=== PATIENT | female | born 1935 | race Caucasian/White ===

== ENCOUNTER 2017-01-19 09:08 | Outpatient (CLI) | payer MEDICARE, OTHER ==
[2017-01-19 09:39] LABS: Anion Gap 14 mmol/L (10-20); BUN (Urea Nitrogen) 23 mg/dL (9.8-20.1); Calc. Creatinine Clearance 0 mL/min (70-130); Calcium 10.4 mg/dL (7.8-10.44); Carbon Dioxide 28 mmol/L (23-31); Chloride 105 mmol/L (98-107); Estimated GFR-MDRD 51
== END 2017-01-19 09:09 | disposition home or self-care (01) ==
LOC: BURLAB 09:08
PROVIDERS: ATTEND Internal Medicine Cardiovascular Disease
DX: I10 Essential (primary) hypertension (principal); R60.0 Localized edema
CPT/HCPCS: 36415; 80048

== ENCOUNTER 2019-01-24 16:38 | Inpatient (IN) | payer MEDICARE ==
[2019-01-24 17:06] LABS: Bilirubin Negative (Negative); Blood, Urine Negative (Negative); Clarity Cloudy (Clear); Glucose, Urine (Dipstick) Negative (Negative); Leukocyte Moderate (Negative); Nitrite Positive (Negative); Protein, Urine (Dipstick) Negative (Neg-Trace); Specific Gravity, Urine 1.015 (1.005-1.030); Urobilinogen 0.2 mg/dL (0.2-1.0)
[2019-01-24] MEDS ORDERED: Ondansetron ODT 4 MG TAB ONE ×2 (17:08→18:23)
[2019-01-24 17:11] LABS: Bacteria/HPF 4+ HPF (None Seen); RBC/HPF 0-3 HPF (0-3); Renal Epithelial 0-3 HPF (0-3)
[2019-01-24] MEDS ORDERED: cefTRIAXone\\ROCEPHIN 2 GM VIAL ONE (18:06)
[2019-01-24] MEDS ORDERED: Sodium Chloride 0.9% 100 ML ONE (18:06)
[2019-01-24 18:11] LABS: #Basophils 0.1 thou/uL (0.0-0.2); #Eosinphils 0.1 thou/uL (0.0-0.7); #Lymphocytes 1.5 thou/uL (1.20-3.40); #Monocytes 0.8 thou/uL (0.11-0.59); #Neutrophils 6.2 thou/uL (1.40-6.50); %Basophils 0.9 % (0.0-1.0); %Eosinophils 1.4 % (0.0-10.0); %Lymphocytes 17.2 % (21.0-51.0); %Neutrophils 71.6 % (42.0-75.0); Hemoglobin 14.3 g/dL (12.0-16.0); Mean Corpuscular HGB CONC 34.4 g/dL (32.0-36.0); Mean Corpuscular Hemoglobin 32.8 pg (27.0-31.0); Mean Corpuscular Volume 95.4 fL (78.0-98.0); Mean Platelet Volume 7.1 fL (7.4-10.4); Platelet Count 208 thou/uL (130-400); RBC Distribution Width 11.5 % (11.5-14.5); Red Blood Cell (RBC) Count 4.37 mill/uL (4.20-5.40); White Blood Cell (WBC) Count 8.6 thou/uL (4.8-10.8)
[2019-01-24] MEDS ORDERED: Ketorolac Tromethamine 30 MG/ML VIAL ONE (18:17)
[2019-01-24 18:23] LABS: ALT (SGPT) 32 U/L (8-55); AST (SGOT) 28 U/L (5-34); Albumin 4.4 g/dL (3.4-4.8); Alkaline Phosphatase 72 U/L (40-150); Anion Gap 16 mmol/L (10-20); BUN (Urea Nitrogen) 24 mg/dL (9.8-20.1); Bilirubin, Total 1.2 mg/dL (0.2-1.2); Calc. Creatinine Clearance 0 mL/min (70-130); Calcium 10.5 mg/dL (7.8-10.44); Carbon Dioxide 27 mmol/L (23-31); Chloride 101 mmol/L (98-107); Estimated GFR-MDRD 47; Globulin 2.8 g/dL (2.4-3.5); Glucose 116 mg/dL (83-110); Potassium 3.9 mmol/L (3.5-5.1); Protein, Total 7.2 g/dL (6.0-8.3); Sodium 140 mmol/L (136-145)
[2019-01-24 20:09] VITALS: BMI 24.1
[2019-01-24] MEDS ORDERED: Ondansetron ODT 4 MG TAB PO PRN (20:15)
[2019-01-24] MEDS: Simvastatin 40 MG TAB PO SCH (21:49)
[2019-01-24] MEDS ORDERED: Ketorolac Tromethamine 60 MG/2 ML VIAL IM SCH (22:15)
[2019-01-24] MEDS: Ondansetron PF 4 MG/2 ML Vial SLOW IVP PRN (22:36)
[2019-01-25 05:35] LABS: ALT (SGPT) 32 U/L (8-55); AST (SGOT) 35 U/L (5-34); Albumin 3.5 g/dL (3.4-4.8); Alkaline Phosphatase 53 U/L (40-150); Anion Gap 15 mmol/L (10-20); BUN (Urea Nitrogen) 26 mg/dL (9.8-20.1); Calc. Creatinine Clearance 27 mL/min (70-130); Calcium 9.4 mg/dL (7.8-10.44); Carbon Dioxide 22 mmol/L (23-31); Chloride 105 mmol/L (98-107); Estimated GFR-MDRD 30; Glucose 116 mg/dL (83-110); Potassium 3.9 mmol/L (3.5-5.1); Protein, Total 5.5 g/dL (6.0-8.3); Sodium 138 mmol/L (136-145)
[2019-01-25 05:48] LABS: Band 7 % (5-11); Hemoglobin 12.8 g/dL (12.0-16.0); Lymphocytes 6 % (21-51); MDiff Complete? YES; Mean Corpuscular HGB CONC 35.3 g/dL (32.0-36.0); Mean Corpuscular Hemoglobin 33.4 pg (27.0-31.0); Mean Corpuscular Volume 94.7 fL (78.0-98.0); Mean Platelet Volume 7.9 fL (7.4-10.4); Monocytes 5 % (0-10); Neutrophil 80 % (42-75); Platelet Count 168 thou/uL (130-400); Platelet Morphology Comment Appears Adequate; RBC Distribution Width 11.6 % (11.5-14.5); RBC Morphology Normal; Reactive Lymphocytes 2 % (0-10); Red Blood Cell (RBC) Count 3.86 mill/uL (4.20-5.40); White Blood Cell (WBC) Count 23.5 thou/uL (4.8-10.8)
[2019-01-25] MEDS ORDERED: Sodium Chloride 0.9% 1,000 ML IV SCH (06:00)
[2019-01-25] MEDS: Sodium Chloride 0.9% 1,000 ML IV SCH ×3 (07:25→20:54)
[2019-01-25] MEDS: Spironolactone 25 MG TAB PO SCH (09:16)
[2019-01-25] MEDS: Furosemide 20 MG TAB PO SCH (09:17)
[2019-01-25] MEDS: Aspirin 81 mg Enteric Coated Tablet PO SCH (09:17)
[2019-01-25] MEDS ORDERED: cefTRIAXone\\ROCEPHIN 1 GM in Sodium Chloride 0.9% 100 ML IVPB SCH (18:00)
[2019-01-25] MEDS: cefTRIAXone\\ROCEPHIN 1 GM in Sodium Chloride 0.9% 100 ML IVPB SCH (20:15)
[2019-01-25] MEDS: Simvastatin 40 MG TAB PO SCH (20:16)
--- NOTE | 2019-01-26 04:29 | HP ---
CHIEF COMPLAINT: Left flank pain. HISTORY OF THE PRESENT ILLNESS: Ms. Malloy is an 83-year-old female, who presented to the [facility] Emergency Department after acute onset of left flank pain yesterday morning. Per the patient, this progressed and by the evening time was so severe that she needed to be evaluated. She denies any associated dysuria, gross hematuria, fever, or chills. She denies ever having had anything like this before. She denies a history of frequent urinary tract infections. She is a patient of Dr. Villarreal's here in [place] and reports that she has been in stable routine health for the last several months. PAST MEDICAL HISTORY: 1. Congestive heart failure. 2. Hyperlipidemia. 3. Coronary artery disease, status post coronary artery bypass graft of 2 vessels. PAST SURGICAL HISTORY: 1. Appendectomy. 2. Coronary artery bypass graft surgery, 2 vessels. 3. Bilateral tubal ligation. SOCIAL HISTORY: The patient reports that she drinks approximately 1 beer a day , but denies any smoking or illicit drug use. She is for what she states is 64 years to her who is 90 and suffering from dementia. They have a daughter who is special needs and a son, Mike, who helps care for them. FAMILY HISTORY: Noncontributory to this case. ALLERGIES: LATEX AND NATURAL RUBBER. MEDICATIONS: 1. Spironolactone 25 mg p.o. daily. 2. Simvastatin 40 mg p.o. at bedtime. 3. Metoprolol-XL 25 mg p.o. daily. 4. Lasix 20 mg p.o. daily. 5. Aspirin 81 mg p.o. daily. REVIEW OF SYSTEMS: GENERAL: The patient denies chills, fever, or lethargy. Positive malaise. CARDIOVASCULAR: Denies chest pain, palpitations, orthopnea, or PND. RESPIRATORY: Denies shortness of breath or sputum production. She has had intermittent cough. Denies hemoptysis. GASTROINTESTINAL: The patient reports approximately 3 episodes of nausea with vomiting with onset of the pain yesterday. Denies diarrhea or constipation. No hematemesis. No bilious emesis. GENITOURINARY: She denies dysuria, frequency, hematuria, or urgency. MUSCULOSKELETAL: Denies muscle aches or other joint pain or swelling. SKIN: Denies rash. NEUROLOGIC: She denies any history of confusion, focal weakness, numbness, or slurring of speech. PSYCHIATRIC: She does drink approximately 1 beer per day, but denies any history of depression or anxiety. LYMPHATIC: The patient denies any swelling. PHYSICAL EXAMINATION: VITAL SIGNS: In the ED, blood pressure 179/78, pulse 78, O2 saturation 100% on room air, respirations 16, temperature 98.4, pain 5/10. At my exam, temperature 98.8 , pulse 72, respirations 16, O2 saturation 95% on room air, and blood pressure 96/ 52. GENERAL: Well-developed, well-nourished female, alert and oriented x4 , who states she is feeling much better and is in no acute distress. She reports no pain. HEENT: Normocephalic, atraumatic. Extraocular muscles intact. Pupils are equally round and reactive to light and accommodation. Nares are patent without discharge. Tongue protrudes in the midline. NECK: Supple without lymphadenopathy, thyromegaly, JVD, or bruit. HEART: Regular rate and rhythm with normal S1 and S2. No murmurs, clicks, rubs , or gallops. CHEST: There is a vertical scar over the sternum that is healed. RESPIRATORY: Clear to auscultation with good aeration bilaterally. No crackles or wheezes. No increased work of breathing. ABDOMEN: Positive bowel sounds in all 4 quadrants. Soft and nondistended. No masses, guarding, or rebound tenderness. Positive CVA tenderness on the left. EXTREMITIES: No cyanosis, clubbing, or edema. NEUROLOGIC: Cranial nerves 2 through 12 grossly intact with no focal deficits. LABORATORY STUDIES: White count on admit 8.6 with an increase to 23.5 today with 80% neutrophils, 7 bands, and 6 lymphocytes. Chemistry profile from admission with a BUN of 24, creatinine 1.11, glucose 116, and calcium 10.5, otherwise unremarkable, lactic acid 1.7. Chemistry profile today with BUN of 26, creatinine 1.61 with a glucose of 116, calcium 9.4, AST 35, and ALT 32. Urinalysis significant for positive nitrite, moderate leukocyte esterase, 11 to 20 wbc's, 4 to 6 epithelial cells, 4+ bacteria and microbiology report so far shows gram-negative rods in the urine and 2 out of 2 blood cultures positive. ASSESSMENT AND PLAN: 1. Acute pyelonephritis. The patient was placed on 1 g of Rocephin IV q.24 in the emergency room. Due to the increase in her white count and the bump in her renal function as well as her positive blood cultures, we will add another agent of Levaquin and also increase the frequency of the Rocephin to q.12 hours. We will follow up her urine and blood culture results closely. 2. Gram-negative bacteremia. Her lactic acid level was negative on her admission; however, she already has 2 out of 2 blood cultures positive. Add the additional antimicrobial coverage as per #1 and continue IV fluid resuscitation and close monitoring of vital signs. We will repeat a CBC and a BMP in the a.m. 3. Acute kidney injury. This is likely secondary to her severe infection. Again, we will monitor for improvement. 4. Hypertension. The patient was continued on her Lasix, metoprolol, and spironolactone at admit and we will hold the diuretics at this time due to her lowered blood pressure and monitor her fluid status closely. 5. History of congestive heart failure. The patient's beta elaine will be continued. We will hold the patient's diuretics for now and monitor closely. We do not have a confirmed left ventricular ejection fraction on record here. 6. Coronary artery disease. We will continue the patient's aspirin and her statin as well as her beta elaine. 7. Prophylaxis. We will add Pepcid and place SCDs. CODE STATUS: Full code status. Job ID: [id number] MTDD
[2019-01-26 05:10] LABS: Anion Gap 12 mmol/L (10-20); BUN (Urea Nitrogen) 31 mg/dL (9.8-20.1); Calc. Creatinine Clearance 24 mL/min (70-130); Calcium 8.4 mg/dL (7.8-10.44); Carbon Dioxide 21 mmol/L (23-31); Chloride 107 mmol/L (98-107); Estimated GFR-MDRD 27; Glucose 97 mg/dL (83-110); Potassium 4.4 mmol/L (3.5-5.1); Sodium 136 mmol/L (136-145)
[2019-01-26 05:58] LABS: Band 6 % (5-11); Hemoglobin 11.6 g/dL (12.0-16.0); Lymphocytes 12 % (21-51); MDiff Complete? YES; Mean Corpuscular HGB CONC 34.7 g/dL (32.0-36.0); Mean Corpuscular Hemoglobin 33.7 pg (27.0-31.0); Mean Corpuscular Volume 96.9 fL (78.0-98.0); Mean Platelet Volume 7.7 fL (7.4-10.4); Monocytes 5 % (0-10); Neutrophil 77 % (42-75); Platelet Count 119 thou/uL (130-400); Platelet Morphology Comment Appears Decreased; RBC Distribution Width 11.8 % (11.5-14.5); RBC Morphology Normal; Red Blood Cell (RBC) Count 3.44 mill/uL (4.20-5.40); White Blood Cell (WBC) Count 11.1 thou/uL (4.8-10.8)
[2019-01-26] MEDS: Sodium Chloride 0.9% 1,000 ML IV SCH (07:07)
[2019-01-26] MEDS: Ondansetron PF 4 MG/2 ML Vial SLOW IVP PRN (09:05)
[2019-01-26] MEDS: cefTRIAXone\\ROCEPHIN 1 GM in Sodium Chloride 0.9% 100 ML IVPB SCH ×2 (09:11→20:45)
[2019-01-26] MEDS: Famotidine 20 MG TAB PO SCH (10:42)
[2019-01-26] MEDS: Acetaminophen 500 MG TAB PO PRN ×2 (10:42→14:10)
[2019-01-26] MEDS: Aspirin 81 mg Enteric Coated Tablet PO SCH (10:43)
[2019-01-26] MEDS ORDERED: Docusate 100 MG CAP PO PRN (12:58)
[2019-01-26] MEDS ORDERED: HYDROcodone/Acetaminophen 10/325 mg Tablet PO PRN (18:19)
[2019-01-26] MEDS ORDERED: Tamsulosin HCl 0.4 MG CAP PO SCH (19:15)
[2019-01-26] MEDS: HYDROcodone/Acetaminophen 5/325 mg Tablet PO PRN (19:16)
[2019-01-26] MEDS: Simvastatin 40 MG TAB PO SCH (20:44)
--- NOTE | 2019-01-26 22:35 | CT ---
CT ABDOMEN AND PELVIS WITHOUT CONTRAST 01/26/[address] of the abdomen and pelvis was performed for evaluation of left flank and lower abdominal pa in in this patient with a UTI and sepsis. Axial slices were acquired, then coronal and sagittal reconstructions were done. There are some small bilateral pleural effusions in the lung bases. Other than a little dependent ate lectasis, there are no infiltrative changes in the visible portions of the lungs. Some coronary arter y calcifications are seen in the LAD. There is a 1.9 cm cyst in the dome of the liver that is probably of no consequence. The liver and spl een otherwise appear normal. Gallstones are present in the gallbladder but there does not appear to b e substantial wall thickening or inflammatory change around it. The pancreas and adrenal glands were unremarkable. The main finding on the study is left hydronephrosis and hydroureter secondary to an 6 to 7 mm distal left ureteral calculus. It is located very near the left UVJ. No residual stones are seen in either kidney. No renal masses were appreciated. The left kidney seems slightly swollen compared to the righ t. The aorta is calcified but shows no aneurysm. The bowel shows no evidence of obstruction or inflammatory change around it. No free air is noted. CT of the pelvis shows a small amount of free fluid in the cul-de-sac. No pelvic masses or gross infl ammatory changes were appreciated. IMPRESSION: 1. 6 to 7 mm distal left ureteral calculus near the UVJ causing moderate hydronephrosis and hydr oureter. 2. Small amount of free fluid in the pelvis. 3. Small bilateral pleural effusions. 4. Small hepatic cysts. 5. Gallstones. Preliminary report taken to nurses station at approximately 1855. Dr. Rojas also notified. POS: HOME
[2019-01-27] MEDS: HYDROcodone/Acetaminophen 5/325 mg Tablet PO PRN ×2 (00:41→04:57)
[2019-01-27 05:25] LABS: Anion Gap 13 mmol/L (10-20); BUN (Urea Nitrogen) 27 mg/dL (9.8-20.1); Calc. Creatinine Clearance 24 mL/min (70-130); Calcium 8.8 mg/dL (7.8-10.44); Carbon Dioxide 21 mmol/L (23-31); Chloride 108 mmol/L (98-107); Estimated GFR-MDRD 27; Glucose 101 mg/dL (83-110); Potassium 4.6 mmol/L (3.5-5.1); Sodium 137 mmol/L (136-145)
[2019-01-27 05:26] LABS: #Eosinphils 0.3 thou/uL (0.0-0.7); #Monocytes 0.8 thou/uL (0.11-0.59); %Basophils 0.5 % (0.0-1.0); %Eosinophils 2.9 % (0.0-10.0); %Lymphocytes 10.9 % (21.0-51.0); %Monocytes 9.3 % (0.0-10.0); %Neutrophils 76.4 % (42.0-75.0); Hemoglobin 11.9 g/dL (12.0-16.0); Mean Corpuscular HGB CONC 33.9 g/dL (32.0-36.0); Mean Corpuscular Hemoglobin 33.1 pg (27.0-31.0); Mean Corpuscular Volume 97.5 fL (78.0-98.0); Mean Platelet Volume 7.8 fL (7.4-10.4); Platelet Count 129 thou/uL (130-400); RBC Distribution Width 11.5 % (11.5-14.5); Red Blood Cell (RBC) Count 3.59 mill/uL (4.20-5.40); White Blood Cell (WBC) Count 9.1 thou/uL (4.8-10.8)
[2019-01-27] MEDS ORDERED: Tamsulosin HCl 0.4 MG CAP PO SCH (09:00)
[2019-01-27] MEDS: Aspirin 81 mg Enteric Coated Tablet PO SCH (09:34)
[2019-01-27] MEDS: cefTRIAXone\\ROCEPHIN 1 GM in Sodium Chloride 0.9% 100 ML IVPB SCH (09:35)
[2019-01-27] MEDS: Famotidine 20 MG TAB PO SCH (09:35)
[2019-01-27] MEDS: Spironolactone 25 MG TAB PO SCH (09:36)
[2019-01-27] MEDS: Furosemide 20 MG TAB PO SCH (09:36)
--- NOTE | 2019-01-27 10:28 | RAD ---
ABDOMEN: DATE: 01/27/2019. FINDINGS: Supine views of the abdomen were obtained to see if one can see the known distal ureteral stone. The calcifications in this patient's pelvis show up very poorly. What I feel is most likely the ston e, and there is some guesswork involved here, is in about the same location as it was on the recent C T. The more peripheral calcification seen in the left side of the pelvis closer to the acetabulum ar e not in the urinary tract. There is a moderate amount of fecal material in the colon. There is some minor gaseous distention of the colon, but no sign of obstruction. No other findings of concern were found. IMPRESSION: 1. Stone not seen definitively due to overlying gas and fecal material. What is thought to be it is in about the same position as the prior scan. 2. Mild constipation. POS: HOME
[2019-01-27 14:32] VITALS: BP 122/58; TEMP 98.4
--- NOTE | 2019-01-27 23:51 | DIS ---
DATE OF ADMISSION: 01/24/2019 DATE OF DISCHARGE: 01/27/2019 ADMISSION DIAGNOSES: 1. Acute pyelonephritis. 2. Gram-negative bacteremia. 3. Acute kidney injury. 4. Hypertension. 5. History of congestive heart failure. 6. Coronary artery disease. DISCHARGE DIAGNOSES: 1. Acute pyelonephritis due to Escherichia coli. 2. Escherichia coli sepsis. 3. Ureterolithiasis, left. 4. Acute kidney injury. 5. Hypertension. 6. History of congestive heart failure. 7. Coronary artery disease. ADMITTING PHYSICIANS: Dr. Venancio Mccormack with Dr. Susu Rojas, the attending physician, assuming care on the morning of January 25. PRIMARY CARE PHYSICIAN: Dr. Luis Villarreal. LAB/IMAGIN. Abdomen and pelvis CT, January 26, 2019, with 6 to 7 mm distal left ureteral calculus near the UVJ causing moderate hydronephrosis and hydroureter. Small amount of free fluid in the pelvis. Small bilateral pleural effusions. Small hepatic cysts. Gallstones. 2. Abdomen x-ray, January 27, shows the stone not seen definitively due to overlying gas and fecal material. What is thought to be is in about the same position as the prior scan. Mild constipation. 3. White count on admission 8.6, it climbed to 23.5 on the morning following the admission, and decreased subsequently to 11.1, and down to 9.1 in normal range on the date of transfer. The differential was neutrophilic with a left shift. The chemistry profile remarkable for a BUN of 24 and creatinine 1.11 on the date of admission, that increased to 27 and 1.8 on the date of transfer. 4. Urinalysis on the night of admission positive for nitrites, moderate leukocyte esterase, 11 to 20 wbc's, 4 to 6 epithelial cells, and 4+ bacteria. 5. Urine culture from the night of admission growing pansensitive Escherichia coli. 6. Blood cultures x2 from the night of admission growing pansensitive Escherichia coli, the same strain as the urine. HISTORY AND PHYSICAL: Please see dictated report from the date of admission. HOSPITAL COURSE: Ms. Malloy is an 84-year-old female, who was admitted with left flank pain and was found to have findings of pyelonephritis in the emergency room with abnormal urinalysis. She, at that time, did not meet sepsis criteria as her lactic acid was not elevated and she had a normal white count. However, overnight, that criteria was met with a leukocytosis and 2 out of 2 blood cultures positive for gram-negative bacteremia. She also had some associated hypotension and was hydrated and treated aggressively on the floor. Empirically , in the ER, she was started on Rocephin and Levaquin was added. She quickly improved. Her pain resolved and her white count improved as well. The patient's renal function did bump, and on January 26, she complained of some pain that was recurring to the lower abdomen on the left. CT scan of the abdomen and pelvis confirmed a 6 to 7 mm stone at the UVJ with hydronephrosis and hydroureter. The patient was stable overnight and the decision was made to transfer the patient to higher level of care this morning for Urology consultation and the probable need for instrumentation prior to her discharge. I have talked with Hospitalist who has graciously accepted the patient. PHYSICAL EXAMINATION: VITAL SIGNS: On the date of discharge, temperature 98.3. The patient has been afebrile throughout her entire admission. Pulse 68, respirations 18, 97% O2 saturation on room air, blood pressure 124/59. GENERAL: A thin female, pleasant, alert and oriented x4, and in no acute distress. HEENT: Pupils are equally round and reactive to light and accommodation, extraocular muscles are intact. Nares are patent without discharge. NECK: Supple without lymphadenopathy, thyromegaly, JVD, or bruit. HEART: Regular rate and rhythm with normal S1 and S2. No clicks, rubs, or gallops. She has a 2/6 systolic ejection murmur, best heard at the left upper sternal border without radiation. She does have a vertical mid sternotomy scar that is well approximated and healed. ABDOMEN: Soft with mild tenderness to palpation in the left upper and lower quadrant without masses, guarding, or rebound tenderness. EXTREMITIES: No cyanosis, clubbing, or edema. NEUROLOGICAL: Cranial nerves 2 through 12 are grossly intact without focal deficits. I have updated the patient as well as her son, Mike Malloy per her request. Should the need arise for her to need skilled rehabilitation following her hospital stay at [facility], we can accept her back here to complete that. CONDITION: Stable. MEDICATIONS: 1. Tylenol 500 mg p.o. q.6 hours p.r.n. 2. Aspirin 81 mg p.o. daily. 3. Rocephin 1 g IV q.12. 4. Colace 100 mg p.o. b.i.d. p.r.n. 5. Pepcid 20 mg p.o. q.a.m. 6. Lasix 20 mg p.o. daily. 7. Brandt 5/325 one p.o. q.4 hours for moderate pain p.r.n. 8. Brandt 10/325 one p.o. q.4 hours for severe pain p.r.n. 9. Levaquin 250 mg IV q.24. 10. Toprol-XL 25 mg p.o. daily. 11. Zofran ODT 4 mg sublingual q.6 hours p.r.n. nausea. 12. Zocor 40 mg p.o. nightly. 13. Aldactone 25 mg p.o. daily. 14. Tamsulosin 0.4 mg p.o. daily. DISPOSITION: Transferred to [facility]. The patient will follow up with either her primary care physician or myself as directed per her hospital discharge. Job ID: [id number] MTDD
== END 2019-01-27 14:45 | disposition short-term general hospital (02) | DRG 872 ==
LOC: BURERS 16:38 → BURMED 18:58 → UNDOADMIN 18:58 → BURMED 19:20
PROVIDERS: ADMIT Family Medicine; ATTEND Family Medicine
DX: A41.51 Sepsis due to Escherichia coli [E. coli] (principal); N10 Acute pyelonephritis; N17.9 Acute kidney failure, unspecified; N13.6 Pyonephrosis; I25.10 Atherosclerotic heart disease of native coronary artery without angina pectoris; R65.20 Severe sepsis without septic shock; I11.0 Hypertensive heart disease with heart failure; I50.9 Heart failure, unspecified; E78.5 Hyperlipidemia, unspecified; Z95.1 Presence of aortocoronary bypass graft; Z90.49 Acquired absence of other specified parts of digestive tract; Z98.51 Tubal ligation status; Z91.040 Latex allergy status; Z79.82 Long term (current) use of aspirin; Z79.899 Other long term (current) drug therapy
CPT/HCPCS: 36415; 74018; 74176; 80048; 80053; 81003; 81015; 83605; 85025; 87040; 87077; 87086; 87149; 87186; 96361; 96365; 96375; J0696; J1885; J1956; J2405; J7050; Q0162

== ENCOUNTER 2019-09-10 10:29 | Observation (INO) | payer MEDICARE ==
[2019-09-10] MEDS ORDERED: Acetaminophen/Codeine 30-300mg Tablet ONE (10:48)
[2019-09-10] MEDS ORDERED: Ketorolac Tromethamine 30 MG/ML VIAL ONE (12:28)
[2019-09-10 13:15] LABS: #Basophils 0.1 thou/uL (0.0-0.2); #Eosinphils 0.2 thou/uL (0.0-0.7); #Lymphocytes 1.1 thou/uL (1.20-3.40); #Monocytes 0.9 thou/uL (0.11-0.59); #Neutrophils 7.4 thou/uL (1.40-6.50); %Basophils 1.2 % (0.0-1.0); %Eosinophils 2.4 % (0.0-10.0); %Lymphocytes 11.6 % (21.0-51.0); %Monocytes 8.7 % (0.0-10.0); Hemoglobin 14.6 g/dL (12.0-16.0); Mean Corpuscular HGB CONC 33.1 g/dL (32.0-36.0); Mean Corpuscular Hemoglobin 32.6 pg (27.0-31.0); Mean Corpuscular Volume 98.7 fL (78.0-98.0); Mean Platelet Volume 6.4 fL (7.4-10.4); Platelet Count 150 thou/uL (130-400); RBC Distribution Width 11.7 % (11.5-14.5); Red Blood Cell (RBC) Count 4.49 mill/uL (4.20-5.40); White Blood Cell (WBC) Count 9.7 thou/uL (4.8-10.8)
[2019-09-10] MEDS ORDERED: Ondansetron ODT 4 MG TAB PO PRN (13:25)
[2019-09-10] MEDS ORDERED: Ibuprofen 600 MG TAB PO PRN (13:25)
[2019-09-10] MEDS ORDERED: Ondansetron PF 4 MG/2 ML Vial SLOW IVP PRN (13:25)
[2019-09-10] MEDS ORDERED: Acetaminophen 325 MG TAB PO PRN (13:25)
[2019-09-10 13:26] LABS: ALT (SGPT) 38 U/L (8-55); AST (SGOT) 34 U/L (5-34); Albumin 4.1 g/dL (3.4-4.8); Alkaline Phosphatase 100 U/L (40-110); Anion Gap 16 mmol/L (10-20); BUN (Urea Nitrogen) 20 mg/dL (9.8-20.1); Bilirubin, Total 0.9 mg/dL (0.2-1.2); Calc. Creatinine Clearance 0 mL/min (70-130); Calcium 9.8 mg/dL (7.8-10.44); Carbon Dioxide 22 mmol/L (23-31); Chloride 109 mmol/L (98-107); Estimated GFR-MDRD 58; Globulin 2.7 g/dL (2.4-3.5); Glucose 98 mg/dL (83-110); Potassium 4.7 mmol/L (3.5-5.1); Protein, Total 6.8 g/dL (6.0-8.3); Sodium 142 mmol/L (136-145)
[2019-09-10 13:50] VITALS: BMI 26.3
--- NOTE | 2019-09-10 14:28 | CT ---
CT OF THE THORAX WITHOUT CONTRAST: DATE: 09/10/2019. FINDINGS: Spiral CT of the thorax was performed for evaluation following right chest trauma. Axial slices were acquired followed by coronal and sagittal reconstructions. Fractures of the 6th through 9th ribs on the right are seen, mainly posterolaterally and laterally. The 7th rib is fractured in 2 different locations. Some of the fractures are minimally displaced. T here is a small right pleural effusion, but no pneumothorax. No pulmonary contusion was appreciated. There is a little bit of atelectasis in the lower lobe on the right. The left lung is clear. Frac tures were not seen elsewhere in the ribs, thorax, or spine. The mediastinum showed no mass or hematoma. Coronary artery calcifications are present and there has been a prior CABG. There is a little low density in the right lobe of the thyroid gland. I cannot rule out pathology here, but an ultrasound would be needed to confirm it. Scans into the upper abdomen showed a cyst in the dome of the liver on the right side measuring 1.9 c m. This has been seen on prior scans. The visible portions of the liver and spleen showed no sign o f laceration or hematoma. There are multiple small gallstones in the gallbladder. IMPRESSION: 1. Fractures of the 6th through 9th ribs with the 7th rib being fractured in [address] Sm all pleural effusion but no pneumothorax. 2. No acute mediastinal change. 3. Gallstones. 4. Hepatic cyst. 5. Equivocal right thyroid nodule or cyst. Ultrasound would be needed to investigate it further if desired. POS: HOME
--- NOTE | 2019-09-10 14:30 | RAD ---
CHEST 2 VIEWS: DATE: 09/10/2019. FINDINGS: Heart size is normal for age. Fractures of several ribs are seen on the right. See CT to follow for details. There is no sign of pneumothorax. If pleural fluid is present, it is minimal. Some minor lingular scarring is suggested. There is no widening or shift of the mediastinum. Median sternotom y sutures baylee prior surgery. IMPRESSION: Multiple right rib fractures. See CT to follow. POS: HOME
[2019-09-10] MEDS: Acetaminophen/Codeine 30-300mg Tablet PO PRN ×2 (15:46→22:25)
[2019-09-10] MEDS ORDERED: traMADol HCl 50 MG TAB PO PRN (19:35)
[2019-09-10] MEDS ORDERED: Docusate 100 MG CAP PO PRN (19:38)
[2019-09-10] MEDS ORDERED: Simvastatin 40 MG TAB PO SCH (21:00)
[2019-09-11] MEDS: Acetaminophen/Codeine 30-300mg Tablet PO PRN (04:43)
[2019-09-11 05:03] LABS: #Basophils 0.1 thou/uL (0.0-0.2); #Eosinphils 0.4 thou/uL (0.0-0.7); #Lymphocytes 1.3 thou/uL (1.20-3.40); #Monocytes 0.8 thou/uL (0.11-0.59); #Neutrophils 4.4 thou/uL (1.40-6.50); %Basophils 0.9 % (0.0-1.0); %Eosinophils 5.6 % (0.0-10.0); %Lymphocytes 18.4 % (21.0-51.0); %Monocytes 11.3 % (0.0-10.0); %Neutrophils 63.9 % (42.0-75.0); Hemoglobin 12.8 g/dL (12.0-16.0); Mean Corpuscular HGB CONC 33.7 g/dL (32.0-36.0); Mean Corpuscular Hemoglobin 32.7 pg (27.0-31.0); Mean Corpuscular Volume 97.2 fL (78.0-98.0); Platelet Count 177 thou/uL (130-400); RBC Distribution Width 11.3 % (11.5-14.5); Red Blood Cell (RBC) Count 3.91 mill/uL (4.20-5.40); White Blood Cell (WBC) Count 6.8 thou/uL (4.8-10.8)
--- NOTE | 2019-09-11 05:10 | HP ---
PRIMARY CARE PHYSICIAN: Dr. Villarreal. CHIEF COMPLAINT: Right-sided chest wall pain secondary to multiple rib fractures. HISTORY OF PRESENT ILLNESS: Ms. Malloy is an 84-year-old female with hypertension; congestive heart failure; and coronary artery disease, status post CABG x2 vessel; presented to ED after a fall last night. According to the patient, she was checking the weather outside. When she came back, she tripped on a rag , hit the coat blue line hanger with a vanity underneath it, she fell on her right side. She wanted to go to the ER, but both and daughter were both asleep. The patient took three ibuprofen 200 mg. She did not sleep well due to constant pain on the right side, worsened with deep breathing and coughing. This morning, she took another three tablets of ibuprofen, called the friend to bring her to the ED. At the emergency room, vital signs showed BP of 180/66, pulse of 74, respiratory rate of 18, temperature of 98.2. Pain level was 5/10. Her O2 saturation was 97%. Examination of her chest showed severe tenderness on the right posterior chest with visible bruising. The patient had chest CT showing fractures of the right 6th through 9th ribs, mainly posterolaterally and laterally. The 7th rib was fractured in two different locations. Some of the fractures were minimally displaced. Noticeable was a small right pleural effusion, but no pneumothorax. No pulmonary contusion noted. There was a slight atelectasis in the lower lobe of the right. Left lung was clear. Abdomen showed a cyst on the dome of the liver on the right measuring 1.9 cm. Portions of the liver and spleen showed no sign of laceration or hematoma. Incidental findings of gallstones. Chest x-ray was also ordered that showed multiple fractures of several ribs, no pneumothorax, with the presence of pleural fluid. Also noticed minor lingular scarring, no widening or shifting of mediastinum. Her labs showed WBC of 9, hemoglobin of 14, hematocrit of 44, and platelet count of 150. Comprehensive metabolic panel showed sodium of 142, potassium 4.7, BUN of 20, creatinine of 0.92, glucose of 98. The patient was given Toradol 60 mg and Tylenol No. 3 due to increasing pain with shortness of breath secondary to multiple rib fractures, she was meeting criteria for observation for monitoring and control of pain. During my evaluation, her vital signs showed BP of 147/67, pulse of 70, respiratory rate of 20, O2 saturation 99%, with temperature of 97.9. The pain is tolerable, but gets worse and reaches 8 to 10 when moving. PAST MEDICAL HISTORY: 1. Hypertension. 2. Coronary artery disease, status post CABG x2 vessel in 2005. 3. Congestive heart failure. 4. Hyperlipidemia. 5. Osteoporosis. PAST SURGICAL HISTORY: 1. Appendectomy. 2. Coronary artery bypass graft in 2005. 3. Left ureteral stent placement and removal in 2008. 4. Bilateral tubal ligation. PERSONAL AND SOCIAL HISTORY: The patient drinks one beer a day, she denies tobacco or illicit drug use. FAMILY HISTORY: Coronary artery disease in both parents. ALLERGIES: LATEX AND NATURAL RUBBER. HOME MEDICATIONS: 1. Aldactone 25 mg daily. 2. Simvastatin 40 mg at bedtime. 3. Metoprolol 25 mg XL daily. 4. Lasix 20 mg daily. 5. Aspirin 81 mg daily. REVIEW OF SYSTEMS: GENERAL: No fever, no chills. No weight loss. No weight gain. HEENT: No headaches. Positive for blurred vision. CHEST AND LUNGS: Positive for right-sided chest wall pain, worsened with coughing and deep breathing. Positive for right rib fractures. HEART: No palpitations. No cyanosis. ABDOMEN: Positive for constipation. Negative for nausea and vomiting. GENITOURINARY: Negative for dysuria. Negative for hematuria. NEUROLOGIC: Negative for weakness or numbness. PSYCH: No anxiety. No depression. PHYSICAL EXAMINATION: VITAL SIGNS: Blood pressure 147/67, pulse of 76, R of 20, O2 saturation 99%, temperature of 97.9. GENERAL: The patient is alert, oriented, not in respiratory distress. HEENT: Normocephalic, atraumatic. Pupils are equal and reactive to light. NECK: Supple. Negative for lymphadenopathy. CHEST AND LUNGS: Symmetrical expansion, but limited due to pain secondary to rib fractures. Positive for bruising noted on the right posterior chest from T4 to T10. Positive for tenderness. Positive tenderness on the affected side. Decreased breath sounds on the right lung hernandez. No crackles. No wheezing. HEART: Regular rate and rhythm. Negative for murmur, rubs, or gallops. ABDOMEN: Slightly distended, soft, normoactive bowel sounds. Negative for deep or rebound tenderness. NEUROLOGIC: Cranial nerves 2 through 12 intact. No focal deficits. MUSCULOSKELETAL: Symmetrical movement of both upper and lower extremities. SKIN: No rashes. No lesions. PSYCH: Appropriate affect and demeanor. LABORATORY DATA: Labs reviewed. ASSESSMENT: 1. Ms. Malloy is an 84-year-old female with shortness of breath and right-sided chest wall pain secondary to right 6th to 9th rib fractures. 2. Right small pleural effusion. 3. Right lower lobe atelectasis. 4. Coronary artery disease, status post CABG x2 vessel in 2005. 5. Congestive heart failure. 6. Osteoporosis. PLAN: 1. The patient is admitted for observation for monitoring and control of pain. Resume all home medications. Repeat labs in a.m. Possible discharge to home within two days. 2. DVT prophylaxis using SCDs. 3. Possible discharge to home within the next 48 hours. 4. Case management to assist with discharge planning. Thank you very much. Job ID: [id number] MTDD
[2019-09-11 05:48] LABS: Anion Gap 15 mmol/L (10-20); BUN (Urea Nitrogen) 19 mg/dL (9.8-20.1); Calc. Creatinine Clearance 44 mL/min (70-130); Calcium 9.1 mg/dL (7.8-10.44); Carbon Dioxide 22 mmol/L (23-31); Chloride 108 mmol/L (98-107); Estimated GFR-MDRD 55; Glucose 107 mg/dL (83-110); Potassium 4.6 mmol/L (3.5-5.1); Sodium 140 mmol/L (136-145)
[2019-09-11] MEDS ORDERED: FLU VACC TS2019-20(65YR UP)/PF 180 MCG/0.5 ML SYRINGE IM ONE (09:00)
[2019-09-11] MEDS ORDERED: Furosemide 20 MG TAB PO SCH (09:00)
[2019-09-11 09:27] VITALS: BP 117/59; TEMP 96.5
--- NOTE | 2019-09-12 09:16 | DIS ---
DATE OF ADMISSION: 09/10/2019 DATE OF DISCHARGE: 09/11/2019 FINAL DIAGNOSES: 1. Right-sided chest wall pain secondary to multiple rib fractures. 2. Right small pleural effusion. 3. Right lower lobe atelectasis. 4. Coronary artery disease, status post coronary artery bypass grafting x2 vessel in 2005. 5. Congestive heart failure, failure. 6. Osteoporosis. HISTORY OF PRESENT ILLNESS/COURSE IN THE [place]: Ms. Malloy is an 84-year-old female with hypertension, congestive heart failure, coronary artery disease, status post CABG x2 vessel, presented to ED after a fall the night prior to admission. She sustained multiple rib fractures per CT scan. Seventh rib was fracture in two different locations. Some of the fractures were minimally displaced. The patient was admitted for observation for monitoring and pain control. Overnight, she did well, her vital signs remain stable, she verbalized desire to go home and manage her condition at home. She only required Motrin, Tylenol, and tramadol for pain. DISPOSITION: Discharged to home. CONDITION: Stable. ACTIVITY: Fall precautions. Activity as tolerated. DIET: Regular diet. MEDICATIONS: 1. Tylenol 650 mg every 4 hours as needed. 2. Colace 100 mg b.i.d. 3. Motrin 600 mg t.i.d. as needed. 4. Tramadol 50 mg every 6 hours as needed. 5. Simvastatin 40 mg at bedtime. 6. Metoprolol-XL 25 mg daily. 7. Lasix 20 mg one tablet daily. 8. Spironolactone 25 mg daily. ADDITIONAL INSTRUCTIONS: The patient is advised to follow up with Dr. Villarreal in 3 to 7 days, the patient will need to call and schedule for appointment. Job ID: [id number]
== END 2019-09-11 12:30 | disposition home or self-care (01) ==
LOC: BURERS 10:29 → BURMED 12:26
PROVIDERS: ADMIT Family Medicine; ATTEND Family Medicine
DX: S22.41XA Multiple fractures of ribs, right side, initial encounter for closed fracture (principal); R07.89 Other chest pain; J90 Pleural effusion, not elsewhere classified; J98.11 Atelectasis; I11.0 Hypertensive heart disease with heart failure; I50.9 Heart failure, unspecified; I25.10 Atherosclerotic heart disease of native coronary artery without angina pectoris; M81.0 Age-related osteoporosis without current pathological fracture; E78.5 Hyperlipidemia, unspecified; K80.20 Calculus of gallbladder without cholecystitis without obstruction; K76.89 Other specified diseases of liver; Z79.82 Long term (current) use of aspirin; Z79.899 Other long term (current) drug therapy; Z91.040 Latex allergy status; Z95.1 Presence of aortocoronary bypass graft; W01.190A Fall on same level from slipping, tripping and stumbling with subsequent striking against furniture, initial encounter
CPT/HCPCS: 36415; 71046; 71250; 80048; 80053; 85025; 90471; 90662; 96372; G0008; G0378; J1885

== ENCOUNTER 2020-06-02 15:20 | Outpatient (CLI) | payer MEDICARE ==
--- NOTE | 2020-06-02 17:57 | RAD ---
THORACIC SPINE THREE VIEWS: Date: 06-01-2020 Comparison: 09-10-19 lateral view on a chest film. FINDINGS: There has been interval anterior compression of one of the mid thoracic vertebrae, approximately T6. Anterior height has been reduced by about 40% or so. There is no displacement. This is a new finding compared to the prior study. The remainder of the thoracic spine showed no acute change. Incidental cervical finding seen on the swimmer's view for the upper thoracic region included anterio r subluxation of C4 on C5, probably due to facet disease and prominent disc space narrowing at C5-6. IMPRESSION: 1. Interval mild anterior compression of one mid thoracic vertebrae, approximately T6. 2. Cervical disc disease and degeneration is noted. Code T POS: HOME
== END 2020-06-02 15:21 | disposition home or self-care (01) ==
LOC: BURRAD 15:20
PROVIDERS: ATTEND Family Medicine
DX: M54.6 Pain in thoracic spine (principal); M47.22 Other spondylosis with radiculopathy, cervical region
CPT/HCPCS: 72072

== ENCOUNTER 2021-06-18 10:04 | Outpatient (CLI) | payer MEDICARE | END 2021-06-18 10:05 | disposition home or self-care (01) | LOC: BURRAD 10:04 | PROVIDERS: ATTEND Family Medicine | DX: M54.6 Pain in thoracic spine (principal); G89.29 Other chronic pain; S22.41XA Multiple fractures of ribs, right side, initial encounter for closed fracture | CPT/HCPCS: 72070 ==

== ENCOUNTER 2021-08-24 18:16 | Emergency (ER) | payer MEDICARE ==
[2021-08-24] MEDS ORDERED: Bacitracin 1 PK ONE (18:41)
== END 2021-08-24 20:25 | disposition home or self-care (01) ==
LOC: BURERS 18:16
DX: S00.83XA Contusion of other part of head, initial encounter (principal); I50.9 Heart failure, unspecified; E78.5 Hyperlipidemia, unspecified; E78.00 Pure hypercholesterolemia, unspecified; W01.0XXA Fall on same level from slipping, tripping and stumbling without subsequent striking against object, initial encounter
CPT/HCPCS: 70450

== ENCOUNTER 2022-03-26 13:29 | Emergency (ER) | payer MEDICARE ==
[2022-03-26] MEDS ORDERED: Naproxen 500 MG TAB PO ONE (13:30)
== END 2022-03-26 14:57 | disposition home or self-care (01) ==
LOC: BURERS 13:29
DX: M02.372 Reiter's disease, left ankle and foot (principal); M10.9 Gout, unspecified; I50.9 Heart failure, unspecified; E78.5 Hyperlipidemia, unspecified; E78.00 Pure hypercholesterolemia, unspecified

== ENCOUNTER 2022-06-04 15:44 | Emergency (ER) | payer MEDICARE | END 2022-06-04 18:13 | disposition home or self-care (01) | LOC: BURERS 15:44 | DX: S93.602A Unspecified sprain of left foot, initial encounter (principal); M62.838 Other muscle spasm; E78.5 Hyperlipidemia, unspecified; I50.9 Heart failure, unspecified; X58.XXXA Exposure to other specified factors, initial encounter ==

== ENCOUNTER 2022-08-13 11:20 | Emergency (ER) | payer MEDICARE ==
[2022-08-13] MEDS ORDERED: Iopamidol 370 76% 100 ML VIAL FS ONE (11:21)
[2022-08-13] MEDS ORDERED: Fentanyl 100 MCG/2 ML VIAL ONE (12:06)
[2022-08-13 12:12] LABS: Hemoglobin 16.3 g/dL (12.0-16.0); Mean Corpuscular HGB CONC 35.8 g/dL (32.0-36.0); Mean Corpuscular Volume 94.9 fL (78.0-98.0); Mean Platelet Volume 7.9 fL (7.4-10.4); Platelet Count 210 thou/uL (130-400); RBC Distribution Width 11.5 % (11.5-14.5); Red Blood Cell (RBC) Count 4.79 mill/uL (4.20-5.40); White Blood Cell (WBC) Count 12.6 thou/uL (4.8-10.8)
[2022-08-13 12:20] LABS: ALT (SGPT) 26 U/L (8-55); AST (SGOT) 33 U/L (5-34); Albumin 4.3 g/dL (3.4-4.8); Alkaline Phosphatase 79 U/L (40-110); Anion Gap 17 mmol/L (10-20); BUN (Urea Nitrogen) 18 mg/dL (9.8-20.1); Bilirubin, Total 2.2 mg/dL (0.2-1.2); Calc. Creatinine Clearance 0 mL/min (70-130); Calcium 9.9 mg/dL (7.8-10.44); Carbon Dioxide 23 mmol/L (23-31); Chloride 102 mmol/L (98-107); Estimated GFR 51; Globulin 3.5 g/dL (2.4-3.5); Glucose 111 mg/dL (83-110); Potassium 5.1 mmol/L (3.5-5.1); Protein, Total 7.8 g/dL (5.8-8.1); Sodium 137 mmol/L (136-145)
[2022-08-13 12:25] LABS: Lymphocytes 7 % (21-51); MDiff Complete? YES; Monocytes 7 % (0-10); Neutrophil 86 % (42-75); Platelet Morphology Comment Appears Adequate; RBC Morphology Normal
[2022-08-13 12:39] LABS: Bilirubin Negative (Negative); Blood, Urine Negative (Negative); Clarity Cloudy (Clear); Glucose, Urine (Dipstick) Negative (Negative); Ketone, Urine Trace mg/dL (Negative); Leukocyte Trace (Negative); Nitrite Positive (Negative); Protein, Urine (Dipstick) Negative (Neg-Trace); Specific Gravity, Urine 1.015 (1.005-1.030); Urobilinogen 0.2 mg/dL (Less than 2)
[2022-08-13 12:44] LABS: Bacteria/HPF 4+ HPF (None Seen); RBC/HPF None Seen HPF (0-3); Squamous Epithelial 0-3 HPF (0-3); WBC/HPF 0-3 HPF (0-3)
== END 2022-08-13 13:35 | disposition home or self-care (01) ==
LOC: BURERS 11:20
DX: S32.009A Unspecified fracture of unspecified lumbar vertebra, initial encounter for closed fracture (principal); N39.0 Urinary tract infection, site not specified; I50.9 Heart failure, unspecified; E78.5 Hyperlipidemia, unspecified; Z79.899 Other long term (current) drug therapy; X58.XXXA Exposure to other specified factors, initial encounter
CPT/HCPCS: 51701; 74177; 80053; 81003; 81015; 83605; 83880; 84484; 85025; 93005; 96361; 96374; J3010; Q9967

== ENCOUNTER 2023-01-12 13:35 | Outpatient (CLI) | payer MEDICARE | END 2023-01-12 13:36 | disposition home or self-care (01) | LOC: BURRAD 13:35 | PROVIDERS: ATTEND Physician Assistant Surgical | DX: S22.049S Unspecified fracture of fourth thoracic vertebra, sequela (principal); M43.9 Deforming dorsopathy, unspecified | CPT/HCPCS: 72070 ==